=== PATIENT | female | born 1965 | race African-American/Black ===

== ENCOUNTER 2023-05-22 12:13 | Emergency (ER) | payer OTHER ==
[2023-05-22 12:27] VITALS: BP 156/90; PULSE 61; RESP 19; TEMP 98.1; BMI 31.1
[2023-05-22] MEDS ORDERED: FAMOTIDINE 20 MG/50 ML IVPB 20 MG/50 ML MG IVPB ONE ×2 (12:54→13:02)
[2023-05-22] MEDS ORDERED: ACETAMINOPHEN 1000 MG/100 ML BAG IVPB ONE (12:54)
[2023-05-22] MEDS ORDERED: ACETAMINOPHEN INJECTION 100 ML IVPB ONE (13:01)
[2023-05-22] MEDS ORDERED: METOCLOPRAMIDE HCL INJECTION 10 MG/2 ML VIAL IVPB ONE (13:23)
[2023-05-22] MEDS ORDERED: METOCLOPRAMIDE HCL INJECTION 10 MG/2 ML VIAL ONE (13:28)
[2023-05-22 13:35] LABS: BASO % 0.5 % (0-2.0); EOS % 1.8 % (0-4.5); HEMATOCRIT 42.8 % (32.4-45.2); HEMOGLOBIN 13.6 GM/dL (10.7-15.3); LYMPH % 33.8 % (8-40); MCH 27.3 pg (25.7-33.7); MCHC 31.8 g/dl (32.0-36.0); MEAN CELL VOLUME 85.7 fl (80-96); MEAN PLT VOLUME 9.4 fl (7.5-11.1); MONO % 7.2 % (3.8-10.2); NEUT % 56.7 % (42.8-82.8); PLATELET COUNT 181 10^3/uL (134-434); RBC 4.99 M/mm3 (3.60-5.2); RDW 14.6 % (11.6-15.6)
[2023-05-22 13:37] LABS: INR 0.96 (0.83-1.09); PROTHROMBIN TIME (PATIENT) 11.1 SEC (9.7-13.0)
[2023-05-22 13:39] LABS: ACTIVATED PTT 35.6 SECONDS (25.2-36.5)
[2023-05-22 13:48] LABS: POTASSIUM 3.8 mmol/L (3.5-5.1)
[2023-05-22 13:50] LABS: BLOOD UREA NITROGEN 15.7 mg/dL (7-18); CALCIUM 9.7 mg/dL (8.5-10.1)
[2023-05-22 13:53] LABS: CREATININE 0.7 mg/dL (0.55-1.3)
[2023-05-22 13:55] LABS: BILIRUBIN,TOTAL 0.5 mg/dL (0.2-1); TOT PROT 7.9 g/dl (6.4-8.2)
== END 2023-05-22 17:22 | disposition left against medical advice (07) ==
LOC: JER 12:13
PROC: 3E033GC Introduction of Other Therapeutic Substance into Peripheral Vein, Percutaneous Approach (ICD-10-PCS; principal; 2023-05-22)
PROC: 3E033NZ Introduction of Analgesics, Hypnotics, Sedatives into Peripheral Vein, Percutaneous Approach (ICD-10-PCS; 2023-05-22)
PROC: 3E033GC Introduction of Other Therapeutic Substance into Peripheral Vein, Percutaneous Approach (ICD-10-PCS; 2023-05-22)
DX: R10.13 Epigastric pain (principal); R11.0 Nausea; R42 Dizziness and giddiness; R07.9 Chest pain, unspecified; R51.9 Headache, unspecified; Z20.822 Contact with and (suspected) exposure to COVID-19
CPT/HCPCS: 0241U-QW; 36415; 71046-TC-FY; 80053; 83690; 84484; 85025; 85610; 85730; 93005; 93010; 99285-25